=== PATIENT | male | born 1945 | race Caucasian/White ===

== ENCOUNTER 2022-06-20 12:42 | Emergency (ER) | payer OTHER ==
[~2022-06-20] VITALS: Ht 177.8 cm; Wt 105.7 kg
[2022-06-20 12:50] VITALS: BP 114/67
--- NOTE | 2022-06-20 13:19 | NUR ---
77YO MALE PT C/O DIZZINESS [id number]. STATES SUDDEN EPISODE WHILE AT WORK. REPORTS HEADACHE LAST NIGHT. PT EXPRESSED CONCERN OF DOG BITE ON CHEST FROM 1 WEEK AGO. PRESENTS WITH MILD BRUISING IN R CHEST. DENIES BEING SEEN FOR BITE, N/V/D, SOB, FEVR OR CHILS. PT AAOX4, RESPIRATIONS EVEN AND UNLABORED. HOB POSITIONED PER COMFORT HX: GALLBLADDER REMOVAL NKA
--- NOTE | 2022-06-20 14:30 | NUR ---
XRAY AT BEDSIDE
--- NOTE | 2022-06-20 14:36 | NUR ---
LAB AT BEDSIDE
[2022-06-20 14:44] LABS: BASOPHILS # (AUTO) 0.1 K/uL (0.00-0.22); BASOPHILS % (AUTO) 0.7 % (0.0-2.0); EOSINOPHILS # (AUTO) 0.4 K/uL (0-0.4); EOSINOPHILS % (AUTO) 4.9 % (0.0-4.0); HEMATOCRIT 45.3 % (36-52); HEMOGLOBIN 15.6 g/dL (12.0-18.0); LYMPHOCYTES # (AUTO) 1.9 K/uL (2.0-11.5); LYMPHOCYTES % (AUTO) 25.4 % (20.5-51.1); MEAN CORPUSCULAR HEMOGLOBIN 30 pg (27-31); MEAN CORPUSCULAR HGB CONC 34 g/dL (33-37); MEAN CORPUSCULAR VOLUME 88.1 fL (80-94); MONOCYTES # (AUTO) 0.5 K/uL (0.8-1.0); NEUTROPHILS # (AUTO) 4.6 K/uL (1.8-7.7); PLATELET COUNT (AUTO) 185 K/uL (140-450); RED BLOOD CELL COUNT(AUTO) 5.14 MIL/uL (4.20-6.10); RED CELL DISTRIBUTION WIDTH 13.6 % (11.6-13.7); WHITE BLOOD COUNT (AUTO) 7.4 K/uL (4.8-10.8)
[2022-06-20 15:17] LABS: MAGNESIUM 2.2 mg/dL (1.8-2.4)
[2022-06-20 15:20] LABS: ALBUMIN 3.1 g/dL (3.4-5.0); ANION GAP 9.4 (8-16); ASPARTATE AMINOTRANSFERASE 17 U/L (15-37); CARBON DIOXIDE 31.8 mmol/L (21-32); CHLORIDE 104 mmol/L (98-107); CREATININE 1.1 mg/dL (0.6-1.3); GLUCOSE 106 mg/dL (74-106); POTASSIUM 4.2 mmol/L (3.5-5.1); SODIUM SERUM 141 mmol/L (136-145); TOTAL BILIRUBIN 0.3 mg/dL (0.0-1.0); UREA NITROGEN, BLOOD 14 mg/dL (7-18)
[2022-06-20 15:33] VITALS: BP 120/70
--- NOTE | 2022-06-20 15:34 | NUR ---
Patient discharged with v/s stable. Written and verbal after care instructions FOR DIZZINESS given and explained. Patient verbalized understanding. Ambulatory with steady gait. All questions addressed prior to discharge. Advised to follow up with PMD. WORK NOTE PROVIDED
--- NOTE | 2022-06-20 15:52 | NUR ---
The patient's care was reviewed and supervised by Gris Pink, RN, RN.
== END 2022-06-20 15:33 | disposition home or self-care (01) ==
LOC: MED 12:42
DX: R55 Syncope and collapse (principal)
CPT/HCPCS: 36415; 71045; 80053; 81002; 82550; 82948; 83735; 84484; 85025; 93005; 99285

== ENCOUNTER 2023-01-16 10:55 | Emergency (ER) | payer OTHER ==
[~2023-01-16] VITALS: Ht 177.8 cm; Wt 107.0 kg
[2023-01-16 11:01] VITALS: BP 144/82
[2023-01-16 11:49] LABS: APPEARANCE,URINE CLEAR (CLEAR); BILIRUBIN,URINE NEGATIVE (NEGATIVE); BLOOD, URINE NEGATIVE (NEGATIVE); COLOR,URINE YELLOW (YELLOW); LEUKOCYTE ESTERASE ,URINE NEGATIVE (NEGATIVE); NITRITE, URINE NEGATIVE (NEGATIVE); PH,URINE 7.5 (5.0-9.0); UGLUCOSE NEGATIVE (NEGATIVE)
--- NOTE | 2023-01-16 11:57 | NUR ---
MD WEBSTER AT BEDSIDE FOR EVALUATION
[2023-01-16] MEDS ORDERED: NACL 0.9% 1,000 ML IV ONE (12:05)
[2023-01-16 12:19] LABS: BASOPHILS # (AUTO) 0.1 K/uL (0.00-0.22); EOSINOPHILS # (AUTO) 0.2 K/uL (0-0.4); EOSINOPHILS % (AUTO) 2.4 % (0.0-4.0); HEMATOCRIT 49.1 % (36-52); HEMOGLOBIN 16.8 g/dL (12.0-18.0); LYMPHOCYTES # (AUTO) 1.9 K/uL (2.0-11.5); LYMPHOCYTES % (AUTO) 26.9 % (20.5-51.1); MEAN CORPUSCULAR HEMOGLOBIN 30 pg (27-31); MEAN CORPUSCULAR HGB CONC 34 g/dL (33-37); MONOCYTES # (AUTO) 0.4 K/uL (0.8-1.0); MONOCYTES % (AUTO) 5.6 % (1.7-9.3); NEUTROPHILS # (AUTO) 4.5 K/uL (1.8-7.7); NEUTROPHILS % (AUTO) 64.1 % (42.2-75.2); PLATELET COUNT (AUTO) 214 K/uL (140-450); RED BLOOD CELL COUNT(AUTO) 5.58 MIL/uL (4.20-6.10); RED CELL DISTRIBUTION WIDTH 13.7 % (11.6-13.7)
[2023-01-16 12:26] LABS: ANION GAP 7.6 (8-16); CARBON DIOXIDE 30.3 mmol/L (21-32); CHLORIDE 104 mmol/L (98-107); GLUCOSE 112 mg/dL (74-106); POTASSIUM 3.9 mmol/L (3.5-5.1); SODIUM SERUM 138 mmol/L (136-145); UREA NITROGEN, BLOOD 13 mg/dL (7-18)
--- NOTE | 2023-01-16 12:59 | NUR ---
IV removed, catheter intact and site benign. Applied folded 4x4 gauze and tape to stop bleeding.
[2023-01-16 13:03] VITALS: BP 159/83
--- NOTE | 2023-01-16 13:03 | NUR ---
Patient discharged with v/s stable. Written and verbal after care instructions given and explained. Patient verbalized understanding. Ambulatory with steady gait. All questions addressed prior to discharge. Advised to follow up with PMD.
== END 2023-01-16 13:03 | disposition home or self-care (01) ==
LOC: MED 10:55
DX: R42 Dizziness and giddiness (principal); Z90.49 Acquired absence of other specified parts of digestive tract
CPT/HCPCS: 36415; 80048; 81003; 85025; 99283; J7030; 96360

== ENCOUNTER 2023-10-25 14:18 | Emergency (ER) | payer OTHER ==
[~2023-10-25] VITALS: Ht 177.8 cm; Wt 108.0 kg
[2023-10-25 14:25] VITALS: BP 121/96; PULSE 96; RESP 20; TEMP 97.3
[2023-10-25] MEDS ORDERED: IBUP-2213 PO (16:24)
== END 2023-10-25 16:36 | disposition home or self-care (01) ==
LOC: MED 14:18
DX: M25.562 Pain in left knee (principal); Z79.899 Other long term (current) drug therapy
CPT/HCPCS: 73562; 99283